=== PATIENT | female | born 1935 | race Caucasian/White ===

== ENCOUNTER → 2016-07-27 17:15 | Outpatient (CLI) | payer OTHER ==
[2009-07-03 06:35] VITALS: BMI 43.2
== END | disposition home or self-care (01) ==
LOC: D.MAMMO 15:30
DX: Z12.31 Encounter for screening mammogram for malignant neoplasm of breast (principal)

== ENCOUNTER → 2017-08-13 21:59 | Outpatient (CLI) | payer OTHER ==
[2009-07-03 06:35] VITALS: BMI 43.2
== END | disposition home or self-care (01) ==
LOC: D.MAMMO 14:00
DX: Z12.31 Encounter for screening mammogram for malignant neoplasm of breast (principal)